=== PATIENT | female | born 1960 ===

== ENCOUNTER 2018-06-18 08:31 | Outpatient (CLI) | payer OTHER ==
[~2018-06-18] VITALS: Ht 177.8 cm; Wt 79.4 kg
== END 2018-06-18 08:45 | disposition home or self-care (01) ==
LOC: OFIC 805 08:31
DX: H93.13 Tinnitus, bilateral (principal); R42 Dizziness and giddiness

== ENCOUNTER 2018-07-09 08:21 | Outpatient (CLI) | payer OTHER ==
[~2018-07-09] VITALS: Ht 152.4 cm; Wt 78.9 kg
== END 2018-07-09 08:40 | disposition home or self-care (01) ==
LOC: OFIC 805 08:21
DX: R42 Dizziness and giddiness (principal); H93.13 Tinnitus, bilateral